=== PATIENT | female | born 1955 | race Caucasian/White ===

== ENCOUNTER → 2016-05-30 | Outpatient (CLI) | payer BC | LOC: BHSO 16:08 | DX: F41.1 Generalized anxiety disorder (principal) ==

== ENCOUNTER → 2016-07-21 | Outpatient (CLI) | payer BC | LOC: BHSO 13:44 | DX: F41.1 Generalized anxiety disorder (principal) ==

== ENCOUNTER → 2016-10-20 | Outpatient (CLI) | payer BC | LOC: BHSO 14:03 | DX: F33.1 Major depressive disorder, recurrent, moderate (principal) ==

== ENCOUNTER → 2017-01-19 | Outpatient (CLI) | payer BC | LOC: BHSO 13:51 | DX: F41.1 Generalized anxiety disorder (principal) ==

== ENCOUNTER → 2017-02-05 | Outpatient (CLI) | payer BC | LOC: MC.RAD 13:00 → EDSEX 13:02 | DX: N63.20 Unspecified lump in the left breast, unspecified quadrant (principal) ==

== ENCOUNTER → 2017-04-19 | Outpatient (CLI) | payer BC | LOC: BHSO 14:31 | DX: F41.1 Generalized anxiety disorder (principal) | CPT/HCPCS: G0463 ==